=== PATIENT | female | born 1965 | race Caucasian/White ===

== ENCOUNTER 2018-09-01 22:01 | Inpatient (IN) | payer OTHER ==
[~2018-09-01] VITALS: Ht 167.6 cm; Wt 90.7 kg
[2018-09-01 22:10] VITALS: Ht 167.6 cm; Wt 90.7 kg
[2018-09-01 23:17] LABS: BASOPHIL % 0.2 % (0-2); PLATELET COUNT 231 x10^3mcL (130-400); RED CELL DISTRIBUTION WIDTH 13.2 % (11.5-14.5)
[2018-09-01 23:27] LABS: ALBUMIN 3.7 g/dL (3.4-5.0); ALKALINE PHOSPHATASE 70 U/L (46-116); ALT/SGPT 103 U/L (14-59); AST/SGOT 40 U/L (15-37); BILIRUBIN TOTAL 0.4 mg/dL (0.20-1.00); CARBON DIOXIDE 26.5 mmol/L (21-32); CHLORIDE SERUM 101 mmol/L (98-107); CREATININE SERUM 1.2 mg/dL (0.6-1.0); GFR1 50 mL/min; GLUCOSE SERUM 187 mg/dL (74-106); SODIUM SERUM 138 mmol/L (136-145); TOTAL PROTEIN, SERUM 7.3 g/dL (6.4-8.2)
[2018-09-01 23:39] LABS: POTASSIUM SERUM 2.8 mmol/L (3.5-5.1)
[2018-09-02 02:18] LABS: UA SPECIFIC GRAVITY >=1.030 (1.005-1.035); urine erythrocyte NEGATIVE (NEGATIVE)
[2018-09-02 02:51] LABS: microscopic required? YES
[2018-09-02 03:00] LABS: AMPHETAMINE QUAL UR NONE DETECTED (See below)
[2018-09-02 05:43] LABS: CARBON DIOXIDE 27.9 mmol/L (21-32); CHLORIDE SERUM 106 mmol/L (98-107); CREATININE SERUM 0.8 mg/dL (0.6-1.0); GFR1 > 60 mL/min; GLUCOSE SERUM 151 mg/dL (74-106); POTASSIUM SERUM 3.4 mmol/L (3.5-5.1); SODIUM SERUM 140 mmol/L (136-145)
[2018-09-02 05:48] LABS: ALKALINE PHOSPHATASE 56 U/L (46-116); ALT/SGPT 81 U/L (14-59); AST/SGOT 31 U/L (15-37); BILIRUBIN TOTAL 0.44 mg/dL (0.20-1.00); TOTAL PROTEIN, SERUM 6.3 g/dL (6.4-8.2)
[2018-09-02 05:51] LABS: ALBUMIN 3.2 g/dL (3.4-5.0)
[2018-09-02 20:31] LABS: T3 TOTAL 1.15 ng/mL
[2018-09-02 20:48] LABS: FREE T4 1.21 ng/dL (0.76-1.46); FREE THYROXINE INDEX 3.6 ug/dL (1.4-4.5); T4(THYROXINE) 9.2 ug/dL (4.7-13.3)
[2018-09-02 21:06] VITALS: BP 127/67
[2018-09-03 06:09] LABS: BASOPHIL % 0.6 % (0-2); PLATELET COUNT 198 x10^3mcL (130-400); RED CELL DISTRIBUTION WIDTH 12.7 % (11.5-14.5)
[2018-09-03 06:10] VITALS: BP 124/70
[2018-09-03 06:34] LABS: CALCIUM 8.3 mg/dL (8.5-10.1); CARBON DIOXIDE 31.2 mmol/L (21-32); CHLORIDE SERUM 104 mmol/L (98-107); CREATININE SERUM 0.9 mg/dL (0.6-1.0); GFR1 > 60 mL/min; GLUCOSE SERUM 121 mg/dL (74-106); POTASSIUM SERUM 3.3 mmol/L (3.5-5.1); SODIUM SERUM 141 mmol/L (136-145)
[2018-09-03 12:53] VITALS: BP 112/57
[2018-09-03 17:44] VITALS: BP 109/68
[2018-09-03 21:37] VITALS: BP 110/69
[2018-09-04 06:20] VITALS: BP 121/75
[2018-09-04 07:46] LABS: BASOPHIL % 0.3 % (0-2); PLATELET COUNT 178 x10^3mcL (130-400); RED CELL DISTRIBUTION WIDTH 13.6 % (11.5-14.5)
[2018-09-04 08:04] LABS: CALCIUM 8.5 mg/dL (8.5-10.1); CARBON DIOXIDE 29.2 mmol/L (21-32); CHLORIDE SERUM 104 mmol/L (98-107); GFR1 > 60 mL/min; GLUCOSE SERUM 125 mg/dL (74-106); PHOSPHOROUS 3.4 mg/dL (2.5-4.9); POTASSIUM SERUM 3.5 mmol/L (3.5-5.1); SODIUM SERUM 140 mmol/L (136-145)
[2018-09-04 08:24] VITALS: BP 147/84
[2018-09-04 20:32] VITALS: BP 141/80
[2018-09-05 06:30] LABS: BASOPHIL % 0.3 % (0-2); PLATELET COUNT 219 x10^3mcL (130-400); RED CELL DISTRIBUTION WIDTH 13.2 % (11.5-14.5)
[2018-09-05 06:50] LABS: CALCIUM 8.7 mg/dL (8.5-10.1); CARBON DIOXIDE 27.9 mmol/L (21-32); CHLORIDE SERUM 103 mmol/L (98-107); CREATININE SERUM 0.9 mg/dL (0.6-1.0); GFR1 > 60 mL/min; GLUCOSE SERUM 124 mg/dL (74-106); POTASSIUM SERUM 3.4 mmol/L (3.5-5.1); SODIUM SERUM 144 mmol/L (136-145)
[2018-09-05 07:29] VITALS: BP 147/78
[2018-09-05 09:31] VITALS: BP 123/68
[2018-09-05 12:48] VITALS: BP 127/68
[2018-09-05] MEDS ORDERED: HAL5 PO (14:22)
[2018-09-05] MEDS ORDERED: PAX20 PO (14:23)
[2018-09-05] MEDS ORDERED: SERO100 PO (14:24)
[2018-09-06 05:57] VITALS: BP 116/73
[2018-09-06 08:36] VITALS: BP 110/67
[2018-09-06 18:11] VITALS: BP 119/76
[2018-09-06 20:41] VITALS: BP 130/78
[2018-09-07 05:34] VITALS: BP 97/51
[2018-09-07 09:06] VITALS: BP 120/62
[2018-09-07 16:47] VITALS: BP 107/69
[2018-09-07 21:00] VITALS: BP 112/62
[2018-09-08 05:00] VITALS: BP 101/59
[2018-09-08 15:44] VITALS: BP 131/79
[2018-09-08 17:19] VITALS: BP 131/79
== END 2018-09-08 21:00 | DRG 384 ==
LOC: ED 22:01 → MU 09-02 18:00 → DU 09-03 17:08 → MU 09-06 12:13
PROVIDERS: Emergency Medicine; Internal Medicine; ADMIT General Practice
PROC: 0HQNXZZ Repair Left Foot Skin, External Approach (ICD-10-PCS; principal; 2018-09-02)
PROC: 0HQNXZZ Repair Left Foot Skin, External Approach (ICD-10-PCS; 2018-09-02)
DX: S91.312A Laceration without foreign body, left foot, initial encounter (principal); N17.0 Acute kidney failure with tubular necrosis; E87.6 Hypokalemia; R74.0 Nonspecific elevation of levels of transaminase and lactic acid dehydrogenase [LDH]; X78.1XXA Intentional self-harm by knife, initial encounter; Y93.89 Activity, other specified; Y92.89 Other specified places as the place of occurrence of the external cause; Z68.32 Body mass index [BMI] 32.0-32.9, adult; Z59.0 Homelessness; F23 Brief psychotic disorder; R73.03 Prediabetes; H10.9 Unspecified conjunctivitis; Z91.19 Patient's noncompliance with other medical treatment and regimen; Z78.1 Physical restraint status; Z23 Encounter for immunization; F31.9 Bipolar disorder, unspecified
CPT/HCPCS: 84439; 90715; G0480; J1630; J2001; J2060; J3475; J3480; J3486; J3490; J7030; Q0092; Q0163